=== PATIENT | female | born 1945 | race Two or more races ===

== ENCOUNTER 2020-12-01 21:01 | Emergency (ER) | payer OTHER ==
[~2020-12-01] VITALS: Ht 152.4 cm; Wt 80.3 kg
[~2020-12-01 21:01] MED LIST: CAPTOPRIL12.5 MG; CAPTOPRIL25 MG; FORTAMET500 MG
[2020-12-01] MEDS ORDERED: AMLODIPINE BESYL5 MG (21:35)
[2020-12-01] MEDS ORDERED: METOPROLOL SUCC50 MG (21:35)
[2020-12-01] MEDS ORDERED: PLAVIX75 MG (21:36)
[2020-12-01] MEDS ORDERED: GLIMEPIRIDE1 MG (21:36)
== END 2020-12-02 04:36 | disposition home or self-care (01) ==
LOC: ER 21:01
DX: I16.1 Hypertensive emergency (principal); I10 Essential (primary) hypertension

== ENCOUNTER 2021-10-26 14:23 | Outpatient (CLI) | payer OTHER ==
[~2021-10-26 14:23] MED LIST changes: +AMLODIPINE BESYL5 MG; +GLIMEPIRIDE1 MG; +METOPROLOL SUCC50 MG; +PLAVIX75 MG
== END 2021-10-26 14:30 | disposition home or self-care (01) ==
LOC: RAD 14:23
PROVIDERS: ATTEND Orthopaedic Surgery
DX: M25.561 Pain in right knee (principal); M25.562 Pain in left knee

== ENCOUNTER 2021-10-29 10:17 | Outpatient (CLI) | payer OTHER | END 2021-10-29 10:32 | disposition home or self-care (01) | LOC: MRI 10:17 | PROVIDERS: ATTEND Orthopaedic Surgery | DX: M25.561 Pain in right knee (principal) | CPT/HCPCS: 73721 ==

== ENCOUNTER 2021-12-02 13:00 | Outpatient (CLI) | payer OTHER | END 2021-12-02 13:07 | disposition home or self-care (01) | LOC: RAD 13:00 | PROVIDERS: ATTEND Orthopaedic Surgery | DX: R07.9 Chest pain, unspecified (principal) ==

== ENCOUNTER 2022-05-01 11:22 | Emergency (ER) | payer OTHER ==
[~2022-05-01] VITALS: Ht 160 cm; Wt 83.9 kg
[2022-05-01] MEDS ORDERED: LIPITOR40 M1 (11:40)
== END 2022-05-01 16:34 ==
LOC: ER 11:22
DX: M54.50 Low back pain, unspecified (principal); E11.9 Type 2 diabetes mellitus without complications; Z79.84 Long term (current) use of oral hypoglycemic drugs; I10 Essential (primary) hypertension

== ENCOUNTER 2024-09-06 13:52 | Emergency (ER) | payer OTHER ==
[~2024-09-06] VITALS: Ht 157.5 cm; Wt 77.1 kg
[~2024-09-06 13:52] MED LIST changes: +LIPITOR40 M1
[2024-09-06] MEDS ORDERED: ACETAMINOPHEN 500 MG GEL..CAP PO ONE (15:45)
[2024-09-06 16:25] LABS: HEMOGLOBIN 14.1 g/dL (12.0-15.00); MEAN CELL VOLUME 85.6 fL (80.00-100.00); MEAN CORPUSCULAR HEMOGLOBIN 28.7 pg (27.00-32.0); MEAN CORPUSCULAR HGB CONC 33.5 g/dl (32.0-36.0); PLATELET COUNT 286 K/uL (150-450); RED CELL DISTRIBUTION WIDTH 14.6 % (11.5-14.5)
[2024-09-06 17:10] LABS: PH,URINE 5.5 (5.0-8.0); URINE APPEARANCE Clear; URINE BILIRRUBIN Negative (NEGATIVE); URINE BLOOD Negative; URINE COLOR Yellow; URINE GLUCOSE Negative (NEGATIVE); URINE KETONE Negative (NEGATIVE); URINE LEUKOCYTE Negative; URINE NITRATE Negative; URINE PROTEIN Negative (NEGATIVE); URINE UROBILINOGEN 0.2 E.U./dl
[2024-09-06 17:11] LABS: URINE BACTERIA 6971.1 uL (0.0-1933); URINE WBC 7.5 uL (0.0-23.2)
[2024-09-06 17:22] LABS: URINE CAST 0.14 uL (0.0-1.40); URINE RBC 0.5 uL (0.0-20.8)
[2024-09-06 17:45] LABS: ALBUMIN 3.6 gm/dL (3.4-5.0); BILIRUBIN TOTAL 0.41 mg/dL (0.3-1.2); CALCIUM 9.6 mg/dL (8.5-10.1); CREATININE SERUM 0.88 mg/dL (0.55-1.02); GFR 61.67; GLOBULINA 4.2 G/DL (2.4-3.5); POTASSIUM 4.53 mEq/L (3.5-5.1); TOTAL PROTEIN 7.8 gm/dL (6.4-8.2)
== END 2024-09-06 21:21 ==
LOC: ER 13:52
PROVIDERS: Emergency Medicine
DX: S09.8XXA Other specified injuries of head, initial encounter (principal); S63.501A Unspecified sprain of right wrist, initial encounter; W19.XXXA Unspecified fall, initial encounter; Y93.89 Activity, other specified; Y92.89 Other specified places as the place of occurrence of the external cause; Y99.8 Other external cause status; M79.671 Pain in right foot; I10 Essential (primary) hypertension; E11.9 Type 2 diabetes mellitus without complications; Z79.84 Long term (current) use of oral hypoglycemic drugs